=== PATIENT | male | born 1945 | race African-American/Black ===

== ENCOUNTER 2018-10-09 12:16 | Emergency (ER) | payer MEDICARE, MEDICAID ==
[~2018-10-09] VITALS: Ht 165.1 cm; Wt 82.0 kg
[2018-10-09] MEDS ORDERED: IBUPROFEN 600MG TABLET PO ONE (14:00)
[2018-10-09] MEDS ORDERED: AMOXICILLIN/POTASSIUM CLAVULANATE 875/125MG TAB PO ONE (15:00)
[2018-10-09 15:34] VITALS: BP 132/69
== END 2018-10-09 15:36 | disposition home or self-care (01) ==
LOC: ER 12:16
DX: M79.642 Pain in left hand (principal); L03.012 Cellulitis of left finger; E11.9 Type 2 diabetes mellitus without complications
CPT/HCPCS: 73130; 99283